=== PATIENT | female | born 1945 | race Caucasian/White ===

== ENCOUNTER → 2018-11-16 | Outpatient (CLI) | payer MEDICARE, BC ==
--- NOTE | 2018-11-16 14:50 | PCVCIMAG ---
APPROVED REPORT Study performed: 11/16/2018 14:42:30 EXAM: Comprehensive 2D, Doppler, and color-flow Echocardiogram Patient Location: Echo lab Status: routine BSA: 1.77 HR: 53 bpmBP: 138/70 mmHg Rhythm: Bradycardia Other Information Study Quality: Adequate Indications Bradycardia hx takostubo cardiomyopathy 2D Dimensions IVSd: 10.65 (7-11mm) LVDd: 35.00 mm PWd: 12.05 (7-11mm)Ascending Ao: 31.65 (22-36mm) LVDs: 25.43 (25-40mm) Left Atrium: 31.48 (27-40mm) Aortic Root: 33.90 mm LV Single Plane 4CH: 54.15 % LV Single Plane 2CH: 58.91 % Biplane EF: 57.4 % Volumes Left Atrial Volume (Systole) Single Plane 4CH: 58.55 mLSingle Plane 2CH: 63.26 mL LA ESV Index: 36.00 mL/m2 Aortic Valve AoV Peak Herbert.: 1.44 m/s AO Peak Gr.: 8.30 mmHgLVOT Max P.98 mmHg LVOT Max V: 1.12 m/s Mitral Valve E/A Ratio: 0.8 MV Decel. Time: 357.70 ms MV E Max Herbert.: 0.78 m/s MV A Herbert.: 1.01 m/s IVRT: 114.19 ms Pulmonary Valve PV Peak Herbert.: 1.01 m/sPV Peak Gr.: 4.08 mmHg Pulmonary Vein P Vein S: 0.25 m/sP Vein A: 0.27 m/s P Vein D: 0.33 m/sP Vein A Dur.: 138.4 msec P Vein S/D Ratio: 0.76 Tricuspid Valve TR Peak Herbert.: 2.48 m/s TR Peak Gr.: 24.55 mmHg TV Vmax: 0.45 m/s Left Ventricle The left ventricle is normal size. There is normal LV segmental wall motion. There is normal left ventricular wall thickness. Left ventricular systolic function is normal. The left ventricular ejection fraction is within the normal range. LVEF is 55-60%. Mild diastolic dysfunction is present (impaired relaxation pattern). Right Ventricle The right ventricle is normal size. The right ventricular systolic function is normal. Atria The left atrium size is normal. The right atrium size is normal. Aortic Valve The aortic valve is normal in structure. Trace aortic regurgitation. There is no aortic valvular stenosis. Mitral Valve The mitral valve is normal in structure. Mild mitral regurgitation. No evidence of mitral valve stenosis. Tricuspid Valve The tricuspid valve is normal in structure. Mild tricuspid regurgitation with PAP of 30 mmHg. Pulmonic Valve The pulmonary valve is normal in structure. Trace pulmonic regurgitation. Great Vessels The aortic root is normal in size. IVC is normal in size and collapses >50% with inspiration. Pericardium There is no pericardial effusion. There is no pleural effusion. <Conclusion> Left ventricular systolic function is normal. There is normal LV segmental wall motion. LVEF is 55-60%. Mild diastolic dysfunction. The aortic valve is normal in structure. Trace aortic regurgitation, no stenosis. The mitral valve is normal in structure. Mild mitral regurgitation. Mild tricuspid regurgitation with pulmonary artery pressure of 30 mmHg. There is no pericardial effusion.
== END | disposition home or self-care (01) ==
LOC: PCVCIMAG 13:57
PROVIDERS: ATTEND Internal Medicine
DX: I08.1 Rheumatic disorders of both mitral and tricuspid valves (principal); I10 Essential (primary) hypertension; E78.5 Hyperlipidemia, unspecified; Z79.82 Long term (current) use of aspirin; Z87.891 Personal history of nicotine dependence; Z88.0 Allergy status to penicillin
CPT/HCPCS: 93005; 93306; G0463